=== PATIENT | male | born 1955 | race American Indian/Alaskan Native ===

== ENCOUNTER 2017-01-16 12:11 | Outpatient (CLI) | payer OTHER ==
--- NOTE | 2017-01-16 15:21 | XRay Report ---
LEFT KNEE, 3 views: History: Left knee pain. The bony architecture is intact without evidence of fracture or dislocation. Mild osteoarthritic changes are noted. No significant soft tissue abnormality is seen. IMPRESSION: Mild osteoarthritic changes. No acute injury appreciated.
--- NOTE | 2017-01-16 15:21 | XRay Report ---
BILATERAL HIPS WITH PELVIS, 3 VIEWS: History: Pain. Findings: Bone mineralization is within normal limits. Severe osteoarthritic changes are identified at both hips. There is no evidence for fracture or or dislocation. No femoral head collapse is appreciated. The pelvis is grossly intact. Impression: Advanced osteoarthritis in both hips. No acute process identified.
== END 2017-01-16 12:12 | disposition home or self-care (01) ==
LOC: XRAY 12:11
PROVIDERS: ATTEND Internal Medicine
DX: M16.0 Bilateral primary osteoarthritis of hip (principal); M17.12 Unilateral primary osteoarthritis, left knee; E11.9 Type 2 diabetes mellitus without complications; I10 Essential (primary) hypertension; E78.00 Pure hypercholesterolemia, unspecified; R52 Pain, unspecified
CPT/HCPCS: 73521